=== PATIENT | male | born 1960 | race Caucasian/White ===

== ENCOUNTER 2020-11-27 06:28 | Day surgery (SDC) | payer MEDICAID ==
[2020-11-27] MEDS ORDERED: Sodium Chloride 0.9% 1,000 ML IV SCH (07:00)
[2020-11-27] MEDS ORDERED: Propofol 200 MG/20 ML SDV ONE (07:19)
[2020-11-27] MEDS ORDERED: Midazolam 1 MG/ML 2 ML SDV ONE (07:19)
[2020-11-27] MEDS ORDERED: fentaNYL 100 MCG/2 ML SDV ONE (07:19)
--- NOTE | 2020-11-27 10:48 | OR ---
DATE OF PROCEDURE: 11/27/2020 SURGEON: Adelfo Graves MD PROCEDURE: Colonoscopy. FINDINGS: Normal colonoscopy. COMPLICATION: None. MILKER MACHINE: None. ANESTHETIC: MAC. PREOPERATIVE DIAGNOSIS: Screening colonoscopy. POSTOPERATIVE DIAGNOSIS: Screening colonoscopy. RISKS: Risks, benefits, alternatives, and limitations, including, but not limited to, infection, bleeding, and perforation were explained to the patient along with false positives and false negatives. PROCEDURE IN DETAIL: The patient was placed in left lateral decubitus position. A digital rectal exam was performed without abnormality. A scope was introduced and advanced atraumatically to the ileocecal valve. A photo was taken. The scope was brought back to the ascending, transverse, and descending colon and retroflexed. No evidence of old or new blood. No masses. No polyps. No abnormalities on retroflexion. Prep was acceptable. Approximately 90% of the luminal surface could be seen. No abnormalities on retroflexion. The patient tolerated the procedure well. Adelfo Graves MD /[id number]
== END 2020-11-27 09:15 | disposition home or self-care (01) ==
LOC: JP.SDS 06:28
PROVIDERS: ATTEND Surgery
DX: Z12.11 Encounter for screening for malignant neoplasm of colon (principal); I10 Essential (primary) hypertension; I25.10 Atherosclerotic heart disease of native coronary artery without angina pectoris
CPT/HCPCS: J2250; J2704; J3010; J7030

== ENCOUNTER 2024-07-30 19:04 | Emergency (ER) | payer MEDICAID ==
[2024-07-30 19:19] LABS: BASOPHILS PERCENT AUTO 0.2 % (0.1-1.3); EOSINOPHILS ABSOLUTE AUTO 0.08 K/uL (0.00-0.40); EOSINOPHILS PERCENT AUTO 0.9 % (0.0-5.4); HEMATOCRIT 39.3 % (38.4-49.7); IMMATURE GRAN ABSOLUTE AUTO 0.03 K/uL (0.00-0.23); IMMATURE GRAN PERCENT AUTO 0.3 % (0.0-0.7); LYMPHOCYTES ABSOLUTE AUTO 2.42 K/uL (0.8-3.3); LYMPHOCYTES PERCENT AUTO 26.2 % (11.4-47.7); MEAN CORPUSCULAR HEMOGLOBIN 29.5 pg (31.6-35.5); MEAN CORPUSCULAR HGB CONC 33.1 g/dL (31.6-35.5); MEAN CORPUSCULAR VOLUME 89.3 fL (81.4-99.0); MONOCYTES ABSOLUTE AUTO 0.72 K/uL (0.20-0.90); MONOCYTES PERCENT AUTO 7.8 % (3.3-12.6); NEUTROPHILS ABSOLUTE AUTO 5.96 K/uL (1.0-7.6); NEUTROPHILS PERCENT AUTO 64.6 % (40.0-78.1); PLATELET COUNT,PLT 212 K/uL (130-375); WHITE BLOOD CELL COUNT,WBC 9.2 K/uL (3.2-11.0)
[2024-07-30 19:20] LABS: BASOPHILS ABSOLUTE AUTO 0.02 K/uL (0.00-0.10)
[2024-07-30 19:42] LABS: ANION GAP 13.4 mmol/L (5.0-14.0); CALCIUM 9.5 mg/dL (8.5-10.1); CREATININE 1.3 mg/dL (0.8-1.3); EST CRCL DRUG DOSING (CG) 58.92 mL/min; POTASSIUM,K 3.4 mmol/L (3.6-5.2); TROPONIN I HIGH SENSITIVITY 30.3 pg/mL (<=60.3)
== END 2024-07-30 21:59 | disposition home or self-care (01) ==
LOC: JP.ED 19:04
DX: R07.89 Other chest pain (principal); I10 Essential (primary) hypertension; I25.2 Old myocardial infarction; Z95.5 Presence of coronary angioplasty implant and graft; E66.9 Obesity, unspecified; Z68.26 Body mass index [BMI] 26.0-26.9, adult; Z79.899 Other long term (current) drug therapy; Z88.1 Allergy status to other antibiotic agents; Z88.9 Allergy status to unspecified drugs, medicaments and biological substances
CPT/HCPCS: 36415; 71045; 80048; 84484; 85025; 85379; 93005; 93010; 99284; 99285

== ENCOUNTER 2024-10-27 11:36 | Emergency (ER) | payer MEDICAID ==
[2024-10-27] MEDS ORDERED: Ketorolac 30 MG/ML SDV IVPUSH ONE (12:53)
[2024-10-27] MEDS: Ketorolac 30 MG/ML SDV IM ONE (13:14)
[2024-10-27] MEDS: Dexamethasone 4 MG/ML SDV IVPUSH ONE (13:38)
[2024-10-27] MEDS: Bupivacaine 0.25% 10 ML SDV INJECT ONE (13:38)
== END 2024-10-27 14:14 | disposition home or self-care (01) ==
LOC: JP.ED 11:36
DX: M25.512 Pain in left shoulder (principal); I10 Essential (primary) hypertension; M79.10 Myalgia, unspecified site; E78.00 Pure hypercholesterolemia, unspecified; E66.9 Obesity, unspecified; I25.2 Old myocardial infarction; Z95.5 Presence of coronary angioplasty implant and graft; Z79.899 Other long term (current) drug therapy; Z88.8 Allergy status to other drugs, medicaments and biological substances
CPT/HCPCS: 20552; 96372; 96374; 99283; J1100; J1885; J3490

== ENCOUNTER 2024-11-01 08:03 | Emergency (ER) | payer MEDICAID ==
[2024-11-01] MEDS: methylPREDNISolone Sodium Succinate 125 MG/2 ML SDV IVPUSH ONE (08:21)
[2024-11-01] MEDS: Cyclobenzaprine 10 MG Tab PO ONE (08:21)
[2024-11-01] MEDS: HYDROmorphone 0.5 MG/0.5 ML Syringe IVPUSH ONE (08:21)
== END 2024-11-01 09:31 | disposition home or self-care (01) ==
LOC: JP.ED 08:03
DX: M25.512 Pain in left shoulder (principal); I25.2 Old myocardial infarction; I10 Essential (primary) hypertension; M19.90 Unspecified osteoarthritis, unspecified site; E66.9 Obesity, unspecified; Z68.26 Body mass index [BMI] 26.0-26.9, adult; Z95.5 Presence of coronary angioplasty implant and graft; Z88.8 Allergy status to other drugs, medicaments and biological substances; Z79.51 Long term (current) use of inhaled steroids; Z79.82 Long term (current) use of aspirin; Z79.899 Other long term (current) drug therapy
CPT/HCPCS: 71046; 73030; 96374; 96375; 99284; A9270; J2919; 99283